=== PATIENT | male | born 1945 | race Caucasian/White ===

== ENCOUNTER 2016-06-29 10:37 | Emergency (ER) | payer MEDICARE ==
[2016-06-29 12:34] VITALS: BP 151/92
--- NOTE | 2016-06-29 12:38 | RAD ---
INDICATION: Progressive back pain COMPARISON: None TECHNIQUE: Routine PA, lateral, and oblique imaging was performed . FINDINGS: Bones: There are no acute bony findings. There are osteoarthritic findings with the space narrowing with endplate sclerosis and facet arthropathy at the lower 2 lumbar levels. There are multilevel endplate irregularities several without mild biconcave appearance. Alignment: Mild scoliosis Disc spaces: The remaining disc spaces are well-maintained Soft tissues: There are no soft tissue abnormalities. IMPRESSION: MILD SCOLIOSIS WITH MODERATE OSTEOARTHRITIS OF THE LOWER LUMBAR SPINE
--- NOTE | 2016-06-29 15:59 | UC ---
Silvino Hardy Alok, scribed for Beth Cat MD on 06/29/16 at 1143 . Back Pain HPI - HPI Summary HPI Summary: 70 y/o male presents to the with lower back pain since 6 day ago. Pain starts at lower back left side and radiates down left leg to ankle with tingling sensations. Pt states that pain is relatively constant, but worst in the morning to the point of difficulty ambulating. Pt states that pain is improved by reclining position as well as ice and stretching. Pt has tried Alleve and Tylenol with no relief. Pt states he has tried chiropractics 5 and 4 days ago, did not help. Pt has also tried acupuncture in back, legs, and hands one day ago with no improvement. Pt denies numbness, urinary symptoms, bowel incontinence, groin pain, hx ulcers. Denies EtOH or hx of addiction. PMHx includes IBS. Able to take naproxen (1/2 dose) which bothers his stomach, but is tolerable. Pt states he has never had back pain of this severity before, and only notes minor sciatic problems in the past. PCP Dr. Parkinson. - History of Current Complaint Chief Complaint: UCBackPain Stated Complaint: BACK PAIN Time Seen by Provider: 06/29/16 11:05 Hx Obtained From: Patient Onset/Duration: Gradual Onset, Lasting Days, Still Present Timing: Constant, Lasting Days Severity Initially: Moderate Severity Currently: Moderate Pain Intensity: 9 Pain Scale Used: 0-10 Numeric Back Pain: Is Discrete @ - Lower back, Radiates To - left leg to left ankle Alleviating: Position, Cold Associated Signs And Symptoms: Positive: Tingling. Negative: Numbness, Bladder Incontinence, Bowel Incontinence - Allergies/Home Medications Allergies/Adverse Reactions: Allergies Allergy/AdvReac Type Severity Reaction Status Date / Time No Known Allergies Allergy Verified 01/28/16 10:07 PMH/Surg Hx/FS Hx/Imm Hx Previously Healthy: Yes - see hpi Endocrine History Of: Denies: Diabetes, Thyroid Disease Cardiovascular History Of: Reports: Hypertension - MEDICATED Denies: Cardiac Disorders, Pacemaker/ICD Respiratory History Of: Denies: COPD, Asthma GI/ History Of: Reports: Ulcer - reflux, Gall Bladder Disease - removed age 45 - Surgical History Surgical History: Yes Surgery Procedure, Year, and Place: 1961 tonsils. 1984 RT ORIF elbow (side not listed). 1996 cholecystectomy. 2001 TURP - Family History Known Family History: Negative: Cardiac Disease, Diabetes - Social History Occupation: Employed Full-time Lives: With Family - Alcohol Use: None Substance Use Type: None Smoking Status (MU): Never Smoked Tobacco Review of Systems Constitutional: Negative Skin: Negative Eyes: Negative ENT: Negative Respiratory: Negative Cardiovascular: Negative Gastrointestinal: Negative Genitourinary: Negative Motor: Negative Neurovascular: Negative Musculoskeletal: Other: - Lower left-sided back pain Neurological: Negative Psychological: Negative All Other Systems Reviewed And Are Negative: Yes Physical Exam Triage Information Reviewed: Yes Appearance: Well-Nourished - pain when sitting / standing in place too long Vital Signs: Initial Vital Signs Temp 99.1 F 06/29/16 10:53 Pulse 76 06/29/16 10:53 Resp 18 06/29/16 10:53 BP 158/79 06/29/16 10:53 Pulse Ox 95 06/29/16 10:53 Vital Signs Reviewed: Yes Eye Exam: Normal ENT Exam: Normal Neck exam: Normal Respiratory Exam: Normal - no dyspnea, no tachypnea, normal respiratory rate Respiratory: Positive: Chest non-tender, Lungs clear, Normal breath sounds, No respiratory distress, No accessory muscle use Cardiovascular Exam: Normal - Heart rate regular, good general skin color, good capillary refill Cardiovascular: Positive: RRR, No Murmur, Pulses Normal, Brisk Capillary Refill Abdominal Exam: Normal Abdomen Description: Positive: Nontender, No Organomegaly, Soft Bowel Sounds: Positive: Present Musculoskeletal: Positive: Other: - Left low back tenderness over sciatic distribution. DTR's 2+ equal pat / ach Foot warm to touch. CR < 2 sec. DP / pt 1+ equal bilat. No rash noted or reported. Denies b/b issues. + subj sens intact perineum. Gait slow, steady. Neurological Exam: Normal - See above. o/w nonfocal Psychological Exam: Normal - conversing easily and appropriately Skin Exam: Normal - no visible or reported rash Diagnostics - Radiology Lumbar Spine XRAY Xray Interpretation: Positive (See Comments) - IMPRESSION: Negative for traumatic cervical spine injury. Negative exam. Radiology Interpretation Completed By: Radiologist Back Pain Course/Dx - Course Course Of Treatment: Declines analgesics, has anti-inflamatories at home. Checked ISTOP reference # [id number]. See avs. Reviewed Xray report w/ Mr. Clark, and recommendation for f/u with pcp. Questions answered as posed to the best of my ability. - Differential Dx/Diagnosis Provider Diagnoses: Sciatica L. Acute left low back pain, possible strain, in the setting of. DJD. Scoliosis Discharge - Discharge Plan Condition: Stable Disposition: HOME Prescriptions: Cyclobenzaprine TAB* [Flexeril 10 MG TAB*] 10 mg PO TID PRN #30 tab PRN Reason: Pain HYDROcodone/ACETAMIN 5-325 MG* [[place] 5-325 TAB*] 1 tab PO Q6H PRN #20 tab MDD 8 PRN Reason: Pain Patient Education Materials: Sciatica (ED), Low Back Strain (ED), Arthritis (ED ) Referrals: Daniel Garnica MD [Primary Care Provider] - Additional Instructions: Follow up with Dr. Garnica, in the next week, if possible. Seek medical attention for worse or new problems in the meantime. Over the counter naproxen as per packaging instructions as needed for inflammation. The documentation as recorded by the Silvino lechuga Alok accurately reflects the service I personally performed and the decisions made by me, Beth Cat MD.
== END 2016-06-29 13:03 | disposition home or self-care (01) ==
LOC: UCEAST 10:37
DX: M54.42 Lumbago with sciatica, left side (principal); M47.816 Spondylosis without myelopathy or radiculopathy, lumbar region; M41.9 Scoliosis, unspecified; I10 Essential (primary) hypertension; Z90.49 Acquired absence of other specified parts of digestive tract
CPT/HCPCS: 72110; 99212; G0463

== ENCOUNTER 2016-07-03 09:34 | Emergency (ER) | payer MEDICARE ==
[2016-07-03] MEDS ORDERED: predniSONE TAB* 20 MG PO ONE (10:01)
[2016-07-03] MEDS ORDERED: Ketorolac INJ* 60 MG/2 ML VIAL IM ONE (10:03)
--- NOTE | 2016-07-03 10:23 | RAD ---
INDICATION: Leg pain COMPARISON: Lumbar spine June 29, 2016 TECHNIQUE: Noncontrast axial source images was performed from the thoracolumbar junction to the sacrum. Coronal and and sagittal reformatted images were generated. FINDINGS: Vertebrae: There is no fracture or acute focal bony lesion. There are mild degenerative changes with spurring at L4 and L5 and minor facet arthropathy lower 2 lumbar levels. Alignment: The lumbar vertebrae are normally aligned. Central Canal: There is wide canal and foraminal patency at T12-L1 and L1-L2. At L2-L3 there is circumferential bulging of the disc but the canal remains patent. The nerve roots exit without direct impingement. L3-L4 shows circumferential bulging the disc with moderate facet overgrowth with mild central canal stenosis. The nerve roots exit without direct impingement. L4-L5 demonstrates broad-based circumferential bulging the disc with prominent ligamentous and facet overgrowth lead to mild central canal stenosis and moderate bilateral foraminal narrowing. L5-S1 shows advanced degenerative disease with vacuum disc phenomena. The canal is widely patent. Bony spur formation may impinge upon the L5 nerve root laterally. MRI imaging is more sensitive means to evaluate the intracanalicular structures and exiting nerve roots. Intervertebral disc spaces: The remaining disc spaces are maintained. Soft tissues: The paravertebral soft tissues are normal. Other: None IMPRESSION: There is multilevel degenerative disc disease. Most significant findings are L3-L5 with mild canal stenoses at L3-L4 and L4-L5. There is osteoarthritis with foraminal narrowing at L5-S1 on the left.
--- NOTE | 2016-07-03 10:25 | RAD ---
INDICATION: Degenerative disc disease. Leg pain. Request for CT of the pelvis COMPARISON: CT lumbar spine same date TECHNIQUE: Noncontrast axial source images were obtained from the iliac crests through the symphysis pubis. FINDINGS: There are no CT abnormalities of the bony pelvis. There is mild prostatic enlargement. No free fluid or adenopathy is seen. The noncontrast CT appearance of the bowel is unremarkable. The superficial soft tissues appear normal. The bladder appears normal. IMPRESSION: NO ACUTE CT ABNORMALITIES OF THE BONY PELVIS
--- NOTE | 2016-07-03 10:55 | ED ---
Back Pain - HPI Summary HPI Summary: Patient presents with low back pain with left posterior leg involvement for 5 days without known injury. He was evaluated at [facility] where he was given [place] and flexeril, which were minimally helpful. He called his today who referred him to the ED for evaluation. He denies incontinence of urine or stool, no N/T, but he does have pain down the outside of the left calf to the small toe. He has had a flair up like this before but it normally resolves on it's own. 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 Onset/Duration: Gradual Onset Onset/Duration: Started Days Ago Timing: Constant Back Pain Location: Is Discrete @, Radiates To - left leg Severity Initially: Mild Severity Currently: Severe Pain Intensity: 10 Character: Aching Aggravating Symptom(s): Bending Alleviating Symptom(s): Position - standing Associated Signs And Symptoms: Positive: Tingling - Allergies/Home Medications Allergies/Adverse Reactions: Allergies Allergy/AdvReac Type Severity Reaction Status Date / Time No Known Allergies Allergy Verified 01/28/16 10:07 PMH/Surg Hx/FS Hx/Imm Hx Endocrine/Hematology History: Denies: Hx Diabetes, Hx Thyroid Disease Cardiovascular History: Reports: Hx Hypertension - MEDICATED Denies: Hx Pacemaker/ICD Respiratory History: Reports: Other Respiratory Problems/Disorders - ex-smoker, quit 1990 Denies: Hx Asthma, Hx Chronic Obstructive Pulmonary Disease (COPD) GI History: Reports: Hx Gall Bladder Disease - removed age 45, Hx Gastroesophageal Reflux Disease, Hx Irritable Bowel, Hx Ulcer - reflux History: Reports: Other Problems/Disorders - TURP age 50 Musculoskeletal History: Reports: Hx Back Problems, Hx Osteoporosis, Other Musculoskeletal History - neck problems Sensory History: Denies: Hx Hearing Aid Neurological History: Reports: Hx Headaches, Other Neuro Impairments/Disorders - 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 1984 RT ORIF elbow (side not listed). 1996 cholecystectomy. 2001 TURP Infectious Disease History: Denies: Hx Hepatitis, Hx Human Immunodeficiency Virus (HIV), Traveled Outside the [place] in Last 30 Days - Family History Known Family History: Positive: None Negative: Cardiac Disease, Diabetes - Social History Occupation: Retired Lives: With Family Alcohol Use: None Substance Use Type: Reports: None Smoking Status (MU): Never Smoked Tobacco Review of Systems Positive: Myalgia Negative: Bruising Negative: Weakness, Paresthesia, Numbness All Other Systems Reviewed And Are Negative: Yes Physical Exam Triage Information Reviewed: Yes Vital Signs On Initial Exam: Initial Vitals Temp Pulse Resp BP Pulse Ox 97.6 F 93 16 145/95 100 07/03/16 09:40 07/03/16 09:40 07/03/16 09:40 07/03/16 09:40 07/03/16 09:40 Vital Signs Reviewed: Yes Appearance: Positive: Well-Appearing, Well-Nourished, Pain Distress Skin: Positive: Warm, Skin Color Reflects Adequate Perfusion, Dry, Soft Head/Face: Positive: Normal Head/Face Inspection Eyes: Positive: EOMI, ALL, Conjunctiva Clear ENT: Positive: Hearing grossly normal Neck: Positive: Supple, Nontender Respiratory/Lung Sounds: Positive: Breath Sounds Present Cardiovascular: Positive: RRR Musculoskeletal: Positive: Strength/ROM Intact, Pain @ - left hip FF painful; TTP left SI joint and buttock over posterior thigh. Negative: Edema Left Neurological: Positive: Sensory/Motor Intact, Alert, Oriented to Person Place, Time, NV Bundle Intact Distally, Abnormal Gait - mildly antalgic gait Psychiatric: Positive: Affect/Mood Appropriate AVPU Assessment: Alert Diagnostics - Vital Signs Vital Signs Temp Pulse Resp BP Pulse Ox 07/03/16 09:40 97.6 F 93 16 145/95 100 - Laboratory Lab Statement: Any lab studies that have been ordered have been reviewed, and results considered in the medical decision making process. - CT No standard instances CT Interpretation: No Acute Changes CT Interpretation Completed By: Radiologist Back Pain Course/Dx - Course Course Of Treatment: Patient will be placed on a steroid taper and consistent course of NSAIDs. He will f/u with his PCP in 3-5 days for re-evaluation. - Diagnoses Differential Diagnosis/HQI/PQRI: Positive: Arthritis, Cauda Equina Syndrome, Fracture, Herniated Disc, Neoplasm, Strain, Sprain Provider Diagnoses: Sciatica Discharge - Discharge Plan Condition: Stable Disposition: HOME Prescriptions: predniSONE TAB* [Deltasone TAB*] 40 mg PO DAILY #9 tab Patient Education Materials: Sciatica (ED) Referrals: Daniel Garnica MD [Primary Care Provider] - Additional Instructions: Please take the steroids as directed until they are completely gone. Begin taking 600mg of ibuprofen tomorrow at lunch, three times daily with meals for the next 3-5 days. Perform gentle stretches if they are not causing your pain to increase. Follow-up with your PCP in 3-5 days for re-evaluation and possible referral to physical therapy. Return to the emergency department if symptoms worsen.
[2016-07-03 12:59] VITALS: BP 141/88
== END 2016-07-03 14:27 | disposition home or self-care (01) ==
LOC: ED 09:34
DX: M54.30 Sciatica, unspecified side (principal); M54.5 Low back pain; M79.1 Myalgia
CPT/HCPCS: 72131; 72192; 96372; 99282; J1885; J7512

== ENCOUNTER 2016-12-03 10:14 | Emergency (ER) | payer MEDICARE ==
[2016-12-03 11:54] LABS: Hematocrit 51 % (42-52); Hemoglobin 17.2 g/dl (14.0-18.0); Mean Corpuscular HGB Conc 34 g/dl (31-36); Mean Corpuscular Hemoglobin 31 pg (27-31); Mean Corpuscular Volume 91 fL (80-94); Mean Platelet Volume 9 um3 (7.4-10.4); Red Blood Count 5.54 10^6/ul (4.0-5.4); Red Cell Distribution Width 14 % (10.5-15); White Blood Count 7.8 10^3/ul (3.5-10.8)
[2016-12-03 11:55] LABS: Urine Bilirubin Negative (Negative); Urine Glucose Negative (Negative); Urine Nitrite Negative (Negative)
[2016-12-03 12:05] LABS: Albumin 3.7 g/dL (3.2-5.2); BUN/Creatinine Ratio 12.2 (8-20); Calcium 9.7 mg/dL (8.6-10.3); EGFR African American 96.4 (>60); Globulin 3.7 g/dL (2-4); Potassium 3.1 mmol/L (3.5-5.0); Total Bilirubin 7.4 mg/dL (0.2-1.0); Total Protein 7.4 g/dL (6.4-8.9)
[2016-12-03 12:09] LABS: Troponin I 0.01 ng/mL (<0.04)
--- NOTE | 2016-12-03 12:15 | RAD ---
INDICATION: Weakness. COMPARISON: Comparison is made with a prior chest x-ray study from January 06, 2010. TECHNIQUE: Dual-energy PA and lateral views of the chest were obtained. FINDINGS: The heart is within normal limits in size. Mediastinal and hilar contours appear within normal limits. The lungs are underinflated. There is mild blunting of the right costophrenic angle most consistent with a small pleural effusion. The lungs appear clear. IMPRESSION: SMALL RIGHT PLEURAL EFFUSION.
--- NOTE | 2016-12-03 13:40 | RAD ---
INDICATION: ] Right upper quadrant pain. Fever. COMPARISON: None TECHNIQUE: Longitudinal and transverse scans of the right upper quadrant were obtained. Doppler interrogation of the hepatic and portal venous system was performed. FINDINGS: Liver: The liver is mildly heterogeneous and there is mild increased echogenicity. There are grouped cysts or there is a complex cyst in the left hepatic lobe. Collectively this area measures 2.0 x 2.0 x 4.0 cm. In the right hepatic lobe is a cyst measuring 2.2 x 1.4 x 1.9 cm. The liver measures 17.2 cm in cephalocaudal dimension. Vessels: There is normal hepatic and portal venous flow. Bile ducts: There is no evidence of intrahepatic or extrahepatic ductal dilatation. The common duct measures 26 cm. Gallbladder: Cholecystectomy. Pancreas: The visualized pancreas appears normal Right kidney: The right kidney is normal in size and echogenicity. There are no masses or calculi. There is no evidence of hydronephrosis. The right kidney measures 12.6 x 5.1 x 6.1 cm. IVC and aorta: The aorta and superior vena cava appear normal. Fluid: There is no ascites. Other: None. IMPRESSION: CHOLECYSTECTOMY. 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 HEPATIC CYSTS.
[2016-12-03 14:54] VITALS: BP 111/63
--- NOTE | 2016-12-04 11:09 | ED ---
Jurgen Hardy Alfonso, scribed for Dar Tracey MD on 12/03/16 at 1115 . Complex/Multi-Sys Presentation - HPI Summary HPI Summary: This patient is a 71 year old M presenting to [facility] accompanied by with a chief complaint of weakness since 3 days ago. The patient rates the pain 0/10 in severity. Symptoms aggravated by nothing. Symptoms alleviated by nothing. Patient reports diaphoresis, chills, and abdominal pain (3 nights ago and since resolved). Patient denies fever, dysuria, cough, and diarrhea. - History Of Current Complaint Chief Complaint: EDGeneral Time Seen by Provider: 12/03/16 10:58 Hx Obtained From: Patient Onset/Duration: Sudden Onset, Lasting Days - 3, Still Present Timing: Constant Severity Currently: Moderate Severity Initially: Moderate Aggravating Factor(s): nothing Alleviating Factor(s): nothing Associated Signs And Symptoms: Positive: Other - diaphoresis, chills, and abdominal pain (3 nights ago and since resolved). Patient denies fever, dysuria , cough, and diarrhea. - Allergies/Home Medications Allergies/Adverse Reactions: Allergies Allergy/AdvReac Type Severity Reaction Status Date / Time No Known Allergies Allergy Verified 01/28/16 10:07 Home Medications: Home Medications Hydrochlorothiazide TAB* [Hydrodiuril TAB*] 25 mg PO DAILY 12/03/16 [History Confirmed 12/03/16] Omeprazole CAP* [Prilosec CAP* 20 MG] 20 mg PO DAILY 12/03/16 [History Confirmed 12/03/16] Propranolol TAB* [Inderal TAB*] 10 mg PO TID 12/03/16 [History Confirmed ] predniSONE TAB* [Deltasone TAB*] 20 mg PO DAILY 12/03/16 [History Confirmed 11/11] PMH/Surg Hx/FS Hx/Imm Hx Endocrine/Hematology History: Denies: Hx Diabetes, Hx Thyroid Disease Cardiovascular History: Reports: Hx Hypertension - MEDICATED Denies: Hx Pacemaker/ICD Respiratory History: Reports: Other Respiratory Problems/Disorders - ex-smoker, quit 1990 Denies: Hx Asthma, Hx Chronic Obstructive Pulmonary Disease (COPD) GI History: Reports: Hx Gall Bladder Disease - removed age 45, Hx Gastroesophageal Reflux Disease, Hx Irritable Bowel, Hx Ulcer - reflux History: Reports: Other Problems/Disorders - TURP age 50 Denies: Hx Renal Disease Musculoskeletal History: Reports: Hx Back Problems, Hx Osteoporosis, Other Musculoskeletal History - neck problems Sensory History: Denies: Hx Hearing Aid Neurological History: Reports: Hx Headaches, Other Neuro Impairments/Disorders - 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 PROSTATE SCRAPED. PIN IN RIGHT ARM-THEN REMOVED. TONSIL CHILD Infectious Disease History: Denies: Hx Hepatitis, Hx Human Immunodeficiency Virus (HIV), Traveled Outside the [place] in Last 30 Days - Family History Known Family History: Negative: Cardiac Disease, Diabetes - Social History Alcohol Use: None Substance Use Type: Reports: None Smoking Status (MU): Never Smoked Tobacco Review of Systems Positive: Chills, Skin Diaphoresis. Negative: Fever Negative: Cough Positive: Abdominal Pain - 3 nights ago and since resolved. Negative: Diarrhea Negative: dysuria Positive: Weakness All Other Systems Reviewed And Are Negative: Yes Physical Exam Triage Information Reviewed: Yes Vital Signs On Initial Exam: Initial Vitals Temp Pulse Resp BP Pulse Ox 98.0 F 79 18 142/86 97 12/03/16 10:21 12/03/16 10:21 12/03/16 10:21 12/03/16 10:21 12/03/16 10:21 Vital Signs Reviewed: Yes Appearance: Positive: Well-Appearing, No Pain Distress Skin: Positive: Warm, Skin Color Reflects Adequate Perfusion, Dry Head/Face: Positive: Normal Head/Face Inspection Eyes: Positive: Normal ENT: Positive: Normal ENT inspection Neck: Positive: Supple, Nontender Respiratory/Lung Sounds: Positive: Clear to Auscultation, Breath Sounds Present Cardiovascular: Positive: RRR Abdomen Description: Positive: Soft, Other: - Mild RLQ and right flank tenderness. Bowel Sounds: Positive: Present Musculoskeletal: Positive: Normal Neurological: Positive: Normal, Sensory/Motor Intact, Alert, Oriented to Person Place, Time, CN Intact II-III Psychiatric: Positive: Affect/Mood Appropriate Diagnostics - Vital Signs Vital Signs Temp Pulse Resp BP Pulse Ox 12/03/16 10:21 98.0 F 79 18 142/86 97 - Laboratory Lab Results: Lab Results 12/03/16 12/03/16 12/03/16 Range/Units 11:10 11:10 11:10 WBC 7.8 (3.5-10.8) 10^3/ul RBC 5.54 H (4.0-5.4) 10^6/ul Hgb 17.2 (14.0-18.0) g/dl Hct 51 (42-52) % MCV 91 (80-94) fL MCH 31 (27-31) pg MCHC 34 (31-36) g/dl RDW 14 (10.5-15) % Plt Count 130 L (150-450) 10^3/ul MPV 9 (7.4-10.4) um3 Neut % (Auto) 79.4 (38-83) % Lymph % (Auto) 8.7 L (25-47) % [place] % (Auto) 11.3 H (1-9) % Eos % (Auto) 0.4 (0-6) % Baso % (Auto) 0.2 (0-2) % Absolute Neuts (auto) 6.2 (1.5-7.7) 10^3/ul Absolute Lymphs (auto) 0.7 L (1.0-4.8) 10^3/ul Absolute Monos (auto) 0.9 H (0-0.8) 10^3/ul Absolute Eos (auto) 0 (0-0.6) 10^3/ul Absolute Basos (auto) 0 (0-0.2) 10^3/ul Absolute Nucleated RBC 0.03 10^3/ul Nucleated RBC % 0.3 INR (Anticoag Therapy) 1.10 (0.89-1.11) Sodium 135 (133-145) mmol/L Potassium 3.1 L (3.5-5.0) mmol/L Chloride 100 L (101-111) mmol/L Carbon Dioxide 25 (22-32) mmol/L Anion Gap 10 (2-11) mmol/L BUN 12 (6-24) mg/dL Creatinine 0.98 (0.67-1.17) mg/dL Est GFR ( Amer) 96.4 (>60) Est GFR (Non-Af Amer) 75.0 (>60) BUN/Creatinine Ratio 12.2 (8-20) Glucose 155 H (70-100) mg/dL Lactic Acid (0.5-2.0) mmol/L Calcium 9.7 (8.6-10.3) mg/dL Total Bilirubin 7.40 H (0.2-1.0) mg/dL AST 30 (13-39) U/L ALT 102 H (7-52) U/L Alkaline Phosphatase 46 (34-104) U/L Troponin I 0.01 (<0.04) ng/mL Total Protein 7.4 (6.4-8.9) g/dL Albumin 3.7 (3.2-5.2) g/dL Globulin 3.7 (2-4) g/dL Albumin/Globulin Ratio 1.0 (1-3) Urine Color Urine Appearance Urine pH (5-9) Ur Specific Wall[place] (1.010-1.030) Urine Protein (Negative) Urine Ketones (Negative) Urine Blood (Negative) Urine Nitrate (Negative) Urine Bilirubin (Negative) Urine Urobilinogen (Negative) Ur Leukocyte Esterase (Negative) Urine Glucose (Negative) 12/03/16 12/03/16 Range/Units 11:10 11:10 WBC (3.5-10.8) 10^3/ul RBC (4.0-5.4) 10^6/ul Hgb (14.0-18.0) g/dl Hct (42-52) % MCV (80-94) fL MCH (27-31) pg MCHC (31-36) g/dl RDW (10.5-15) % Plt Count (150-450) 10^3/ul MPV (7.4-10.4) um3 Neut % (Auto) (38-83) % Lymph % (Auto) (25-47) % [place] % (Auto) (1-9) % Eos % (Auto) (0-6) % Baso % (Auto) (0-2) % Absolute Neuts (auto) (1.5-7.7) 10^3/ul Absolute Lymphs (auto) (1.0-4.8) 10^3/ul Absolute Monos (auto) (0-0.8) 10^3/ul Absolute Eos (auto) (0-0.6) 10^3/ul Absolute Basos (auto) (0-0.2) 10^3/ul Absolute Nucleated RBC 10^3/ul Nucleated RBC % INR (Anticoag Therapy) (0.89-1.11) Sodium (133-145) mmol/L Potassium (3.5-5.0) mmol/L Chloride (101-111) mmol/L Carbon Dioxide (22-32) mmol/L Anion Gap (2-11) mmol/L BUN (6-24) mg/dL Creatinine (0.67-1.17) mg/dL Est GFR ( Amer) (>60) Est GFR (Non-Af Amer) (>60) BUN/Creatinine Ratio (8-20) Glucose (70-100) mg/dL Lactic Acid 2.0 (0.5-2.0) mmol/L Calcium (8.6-10.3) mg/dL Total Bilirubin (0.2-1.0) mg/dL AST (13-39) U/L ALT (7-52) U/L Alkaline Phosphatase (34-104) U/L Troponin I (<0.04) ng/mL Total Protein (6.4-8.9) g/dL Albumin (3.2-5.2) g/dL Globulin (2-4) g/dL Albumin/Globulin Ratio (1-3) Urine Color Nimisha Urine Appearance Clear Urine pH 6.0 (5-9) Ur Specific [place] 1.006 L (1.010-1.030) Urine Protein Negative (Negative) Urine Ketones Negative (Negative) Urine Blood Negative (Negative) Urine Nitrate Negative (Negative) Urine Bilirubin Negative (Negative) Urine Urobilinogen Negative (Negative) Ur Leukocyte Esterase Negative (Negative) Urine Glucose Negative (Negative) Result Diagrams: 12/03/16 11:10 12/03/16 11:10 Lab Statement: Any lab studies that have been ordered have been reviewed, and results considered in the medical decision making process. - Radiology CXR Radiology Interpretation Completed By: Radiologist - SMALL RIGHT PLEURAL EFFUSION. ED physician has reviewed this radiology report and agrees. - EKG 1143 Cardiac Rate: NL - BPM 71 EKG Rhythm: Sinus Rhythm EKG Interpretation: Wandering baseline - Additional Comments Diagnostic Additional Comments: Liver US reveals, per radiologist, CHOLECYSTECTOMY. 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 HEPATIC CYSTS. ED physician has reviewed this radiology report and agrees. Complex Multi-Symp Course/Dx Assessment/Plan: This patient is a 71 year old M presenting to [facility] accompanied by with a chief complaint of weakness since 3 days ago. The patient rates the pain 0/10 in severity. Symptoms aggravated by nothing. Symptoms alleviated by nothing. Patient reports diaphoresis, chills, and abdominal pain (3 nights ago and since resolved). Patient denies fever, dysuria , cough, and diarrhea. An EKG reveals NSR. CXR reveals SMALL RIGHT PLEURAL EFFUSION. ED physician has reviewed this radiology report and agrees. Liver US reveals, per radiologist, CHOLECYSTECTOMY. 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 HEPATIC CYSTS. ED physician has reviewed this radiology report and agrees. Patient will be discharged with follow up from PCP. The patient is agreeable with this plan. - Diagnoses Provider Diagnoses: Weakness Discharge - Discharge Plan Condition: Stable Disposition: HOME Patient Education Materials: Weakness (ED) Referrals: Daniel Garnica MD [Primary Care Provider] - 3 Days The documentation as recorded by the Jurgen lechuga Alfonso accurately reflects the service I personally performed and the decisions made by me, Dar Tracey MD.
== END 2016-12-03 15:15 | disposition home or self-care (01) ==
LOC: ED 10:14
DX: R53.1 Weakness (principal); R10.9 Unspecified abdominal pain; R68.83 Chills (without fever)
CPT/HCPCS: 36415; 71020; 76705; 80053; 81003; 83605; 84484; 85025; 85610; 87040; 93005; 99284

== ENCOUNTER 2018-02-01 10:16 | Day surgery (SDC) | payer MEDICARE ==
[~2018-02-01 10:16] MED LIST: Acetaminophen TAB* 325 MG PO PRN; Buffered Lidocaine 0.9% SYRIN* 5 ML/SYR SYRINGE INTRADERM ONE
[2018-02-01] MEDS ORDERED: Midazolam* 1 MG/ML 2 ML VIAL (2 MG) ONE (12:12)
[2018-02-01] MEDS ORDERED: fentaNYL* 50 MCG/ML 2 ML VIAL (100 MCG VIAL) ONE (12:45)
[2018-02-01 13:12] VITALS: BP 143/83
[2018-02-01] MEDS ORDERED: Ketorolac 0.5% OPHTH (NF) 0.5 % 5 ML BTL ONE (14:32)
[2018-02-01] MEDS ORDERED: Povidone Iodine 5% OPTH* 30 ML BTL ONE (14:32)
[2018-02-01] MEDS ORDERED: Lidocaine 1%* 5 ML VIAL ONE (14:32)
[2018-02-01] MEDS ORDERED: Phenylephrine 2.5% OPTH.SOL* 2 ML BTL ONE (14:32)
[2018-02-01] MEDS ORDERED: Proparacaine 0.5% OPHTH.SOL* 15 ML BTL ONE (14:32)
[2018-02-01] MEDS ORDERED: Lidocaine 2% EPI 1:200000 MPF*10-20 ML VIAL ONE (14:32)
[2018-02-01] MEDS ORDERED: Neomycin/Polymy/Dex OPTH.SUSP* MAXITROL 0.1% 5 ML ONE (14:32)
[2018-02-01] MEDS ORDERED: Cyclopentolate 1% OPTH.SOL* 2 ML BTL ONE (14:32)
[2018-02-01] MEDS ORDERED: acetaZOLAMIDE TAB* 250 MG ONE (14:32)
--- NOTE | 2018-02-02 03:13 | OP ---
DATE OF OPERATION: 02/01/18 [facility] DATE OF : 41 SURGEON: Tolu Aragon M.D. PREOPERATIVE DIAGNOSIS: Cataract, right eye. POSTOPERATIVE DIAGNOSIS: Cataract, right eye. OPERATIVE PROCEDURE: Extracapsular cataract extraction with intraocular lens implant, right eye. DESCRIPTION OF PROCEDURE: The patient was brought to the operating room after being given 1/2% Alcaine with epinephrine drops in the preoperative area. The eye was prepped and draped in the usual sterile fashion. Sterile drape and eyelid speculum were placed. Again, topical 1/2% Alcaine with epinephrine was given. A paracentesis incision was made at the 9 o'clock position with the No.75 blade. Clear cornea incision 2.2 x 2.2-mm was created at the 12 o'clock position starting at the anterior limbus using the 2.2-mm keratome. The anterior chamber was irrigated with 0.4 mL of 1% non-preservative intracameral lidocaine and filled with DisCoVisc. A capsulorrhexis was completed using the cystotome and the Utrata forceps. Hydrodissection was performed with balanced salt solution. The lens nucleus was removed with the Phacoemulsification handpiece without incident. Cortex was removed with the irrigation-aspiration handpiece. The capsular bag was re-inflated using DisCoVisc and an [id number] 22.5 implant was inserted with the shooter oriented to the 44 degree meridian. Horizontal reference marked with the patient in the seated position in the preoperative area. The irrigation-aspiration handpiece was used to remove all residual DisCoVisc. The eye was refilled with balanced salt solution and the wound checked and found to be watertight. Topical Maxitrol drops were given. [id number]/[facility] #: [id number] MTDD
== END 2018-02-01 13:16 | disposition home or self-care (01) ==
LOC: OREAST 10:16
PROVIDERS: ATTEND Specialist
DX: H25.811 Combined forms of age-related cataract, right eye (principal); I10 Essential (primary) hypertension; K21.9 Gastro-esophageal reflux disease without esophagitis; N40.0 Benign prostatic hyperplasia without lower urinary tract symptoms; G47.33 Obstructive sleep apnea (adult) (pediatric); G25.0 Essential tremor
CPT/HCPCS: A9270-GY; J2250; J3010; V2787

== ENCOUNTER → 2018-02-08 07:33 | Day surgery (SDC) | payer MEDICARE ==
[~2018-02-08 07:33] MED LIST changes: +Cyclopentolate 1% OPTH.SOL* 2 ML BTL ONE; +Ketorolac 0.5% OPHTH (NF) 0.5 % 5 ML BTL ONE; +Lidocaine 1%* 5 ML VIAL ONE; +Lidocaine 2% EPI 1:200000 MPF*10-20 ML VIAL ONE; +Midazolam* 1 MG/ML 2 ML VIAL (2 MG) ONE; +Neomycin/Polymy/Dex OPTH.SUSP* MAXITROL 0.1% 5 ML ONE; +Phenylephrine 2.5% OPTH.SOL* 2 ML BTL ONE; +Povidone Iodine 5% OPTH* 30 ML BTL ONE; +Proparacaine 0.5% OPHTH.SOL* 15 ML BTL ONE; +acetaZOLAMIDE TAB* 250 MG ONE
[2018-02-08 10:06] VITALS: BP 139/60
--- NOTE | 2018-02-08 13:06 | OP ---
DATE OF OPERATION: 02/08/2018. DATE OF : 1945. SURGEON: Tolu Aragon M.D. PREOPERATIVE DIAGNOSIS: Cataract left eye. POSTOPERATIVE DIAGNOSIS: Cataract left eye. OPERATIVE PROCEDURE: Extracapsular cataract extraction with intraocular lens implant left eye. PROCEDURE: The patient was brought to the operating room after being given 1/2% Alcaine with epineph rine drops in the preoperative area. The eye was prepped and draped in the usual sterile fashion. S terile drape and eyelid speculum were placed. Again, topical 1/2% Alcaine with epinephrine was given . A paracentesis incision was made at the 3 o'clock position with the No.75 blade. Clear cornea inc ision 2.2 x 2.2-mm was created at the 6 o'clock position starting at the anterior limbus using the 2. 2-mm keratome. The anterior chamber was irrigated with 0.4 mL of 1% non-preservative intracameral li docaine and filled with DisCoVisc. A capsulorrhexis was completed using the cystotome and the Utrata forceps. Hydrodissection was performed with balanced salt solution. The lens nucleus was removed wi th the Phacoemulsification handpiece without incident. Cortex was removed with the irrigation-aspira tion handpiece. The capsular bag was re-inflated using DisCoVisc and an [id number] 21.5 implant was inse rted with the shooter. The irrigation-aspiration handpiece was used to remove all residual DisCoVisc . The eye was refilled with balanced salt solution and the wound checked and found to be watertight. Topical Maxitrol drops were given. [id number]/[facility] #: [id number]
== END | disposition home or self-care (01) ==
LOC: OREAST 07:33
PROVIDERS: ATTEND Specialist
DX: H25.812 Combined forms of age-related cataract, left eye (principal); I10 Essential (primary) hypertension; K21.9 Gastro-esophageal reflux disease without esophagitis; G47.33 Obstructive sleep apnea (adult) (pediatric); R25.1 Tremor, unspecified; M19.90 Unspecified osteoarthritis, unspecified site
CPT/HCPCS: A9270-GY; J2250; V2632

== ENCOUNTER 2022-04-06 04:14 | Inpatient (IN) ==
[2022-04-06] MEDS ORDERED: Lactated Ringers 1000 ml BAG 1,000 ML IV ONE ×2 (04:23→09:25)
[2022-04-06 05:10] LABS: Hematocrit 45 % (42-52); Hemoglobin 15.4 g/dL (14.0-18.0); Mean Corpuscular HGB Conc 34 g/dL (31-36); Mean Corpuscular Hemoglobin 31 pg (27-31); Mean Corpuscular Volume 93 fL (80-94); Red Blood Count 4.91 10^6 /uL (4.18-5.48); Red Cell Distribution Width 14 % (10-15); White Blood Count 4.8 10^3/uL (3.5-10.8)
[2022-04-06 05:15] LABS: Albumin 3.6 g/dL (3.2-5.2); Albumin/Globulin Ratio 1.6 (1-3); C Reactive Protein 133.71 mg/L (<8.01); Calcium 8.4 mg/dL (8.6-10.3); Creatinine, Serum 1.56 mg/dL (0.67-1.17); Globulin 2.2 g/dL (2-4); Potassium 3.7 mmol/L (3.5-5.0); Total Bilirubin 3.4 mg/dL (0.2-1.0); Total Protein 5.8 g/dL (6.4-8.9); eGFR CKD-EPI 45.2 (>60)
[2022-04-06] MEDS ORDERED: Cefepime 1 GM in Dextrose 1 GM/50 ML BAG IV ONE (05:34)
[2022-04-06 05:37] LABS: ABS Lymphocytes 0.2 10^3/ul (1.0-4.8); ABS Neutrophils 4.5 10^3/ul (1.5-7.7); Eosinophil % 0.1 %; Mean Platelet Volume 7.8 fL (7.4-10.4); Nucleated Red Blood Cells % 0.1; Platelet Count 92 10^3/uL (150-450)
[2022-04-06] MEDS ORDERED: Iodixanol (CONTRAST) 320 MG/ML 100 ML SDV IV ONE (07:08)
[2022-04-06 09:19] LABS: Urine Appearance Clear; Urine Bacteria Absent (Absent); Urine Bilirubin Negative (Negative); Urine Blood Negative (Negative); Urine Color Amber; Urine Glucose Negative (Negative); Urine Ketones Negative (Negative); Urine Nitrite Negative (Negative); Urine Protein 1+(30 mg/dL) (Negative); Urine Red Blood Cell Absent (Absent); Urine Specific Gravity > 1.030 (1.002-1.030); Urine Squamous Epithelial Cell Present (Absent); Urine Urobilinogen Negative (Negative); Urine White Blood Cell Trace(0-5/hpf) (Absent)
[2022-04-06] MEDS ORDERED: Lactated Ringers 1000 ml BAG 1,000 ML IV SCH (12:00)
[2022-04-06 12:24] LABS: Direct Bilirubin 0.7 mg/dL (0.03-0.18); Indirect Bilirubin 2.7 mg/dL (0.3-1.0)
[2022-04-06] MEDS ORDERED: DOXYcycline 100 MG in NS 0.9% 250 ml 250 ML IVPB SCH (13:00)
[2022-04-06] MEDS: Enoxaparin 40 MG/0.4 ML SYR SUBCUT SCH (13:10)
[2022-04-06] MEDS: cefTRIAXone 1 gm/50 mL D5W 1 GM/50 ML BAG IV SCH (15:11)
[2022-04-06 18:21] LABS: Calcium 8.9 mg/dL (8.6-10.3); Creatinine, Serum 1.34 mg/dL (0.67-1.17); Potassium 4.3 mmol/L (3.5-5.0); eGFR CKD-EPI 54.2 (>60)
[2022-04-06] MEDS: metroNIDAZOLE IV 500 MG/100ML 500 MG/100 ML BAG IVPB SCH (18:33)
[2022-04-07] MEDS: metroNIDAZOLE IV 500 MG/100ML 500 MG/100 ML BAG IVPB SCH (05:11)
[2022-04-07 06:32] LABS: ABS Lymphocytes 0.7 10^3/ul (1.0-4.8); ABS Monocytes 0.5 10^3/ul (0-0.8); ABS Neutrophils 7.7 10^3/ul (1.5-7.7); Eosinophil % 0.1 %; Hematocrit 39 % (42-52); Hemoglobin 13.8 g/dL (14.0-18.0); Lymphocyte % 8.3 %; Mean Corpuscular HGB Conc 35 g/dL (31-36); Mean Corpuscular Hemoglobin 32 pg (27-31); Mean Corpuscular Volume 91 fL (80-94); Platelet Count 73 10^3/uL (150-450); Red Blood Count 4.29 10^6 /uL (4.18-5.48); Red Cell Distribution Width 14 % (10-15)
[2022-04-07 07:01] LABS: Albumin/Globulin Ratio 1.5 (1-3); Calcium 8.2 mg/dL (8.6-10.3); Creatinine, Serum 1.02 mg/dL (0.67-1.17); Potassium 3.4 mmol/L (3.5-5.0); Total Bilirubin 1.4 mg/dL (0.2-1.0); eGFR CKD-EPI 75.2 (>60)
[2022-04-07] MEDS: cefTRIAXone 1 gm/50 mL D5W 1 GM/50 ML BAG IV SCH (14:07)
[2022-04-07] MEDS: Enoxaparin 40 MG/0.4 ML SYR SUBCUT SCH (14:07)
[2022-04-08 06:00] LABS: ABS Basophils 0.1 10^3/ul (0-0.2); ABS Eosinophils 0.1 10^3/ul (0-0.6); ABS Lymphocytes 0.9 10^3/ul (1.0-4.8); ABS Monocytes 0.8 10^3/ul (0-0.8); ABS Neutrophils 7.1 10^3/ul (1.5-7.7); Eosinophil % 1.2 %; Hematocrit 42 % (42-52); Hemoglobin 14.5 g/dL (14.0-18.0); Lymphocyte % 10.4 %; Mean Corpuscular HGB Conc 34 g/dL (31-36); Mean Corpuscular Hemoglobin 32 pg (27-31); Mean Corpuscular Volume 93 fL (80-94); Mean Platelet Volume 8.2 fL (7.4-10.4); Platelet Count 87 10^3/uL (150-450); Red Blood Count 4.58 10^6 /uL (4.18-5.48); Red Cell Distribution Width 15 % (10-15); White Blood Count 8.9 10^3/uL (3.5-10.8)
[2022-04-08 06:19] LABS: Calcium 8.3 mg/dL (8.6-10.3); Potassium 3.7 mmol/L (3.5-5.0)
[2022-04-08 06:24] LABS: Creatinine, Serum 0.84 mg/dL (0.67-1.17); eGFR CKD-EPI 89.3 (>60)
[2022-04-08] MEDS ORDERED: Sulfamethox/Trimethoprim DS TAB 800/160 mg PO SCH (10:00)
[2022-04-08 11:55] VITALS: BP 150/80
[2022-04-08] MEDS: Enoxaparin 40 MG/0.4 ML SYR SUBCUT SCH (13:24)
[2022-04-08 17:32] LABS: Anaplasma phagocytophilum Negative (Negative); B. miyamotoi PCR, B Negative (Negative); Babesia divergens/MO-1 Negative (Negative); Babesia ducani Negative (Negative); Ehrlichia chaffeensis Negative (Negative); Ehrlichia ewingii/canis Negative (Negative); Ehrlichia muris eauclairensis Negative (Negative)
== END 2022-04-08 14:35 | disposition home or self-care (01) | DRG 872 ==
LOC: EDHOLD 04:14 → ED 04:14 → OBSVTOIN 11:04 → INTOOBSV 11:04 → SUATTDRO 11:04 → MED 16:36
PROVIDERS: ADMIT Hospitalist; ATTEND Hospitalist

== ENCOUNTER 2023-03-21 14:04 | Observation (INO) ==
[2023-03-21 14:56] LABS: ABS Eosinophils 0.1 10^3/uL (0.0-0.5); ABS Lymphocytes 0.6 10^3/uL (1.0-4.8); ABS Neutrophils 6.8 10^3/uL (1.5-7.6); ABS Nucleated RBC 0.02 10^3/ul; Eosinophil % 0.7 %; Hematocrit 44.1 % (38-53); Hemoglobin 15.2 g/dL (13.2-16.3); Lymphocyte % 7.6 %; Mean Corpuscular Hemoglobin 31.9 pg (27-33); Mean Corpuscular Hgb Conc 34.5 g/dL (31-36); Mean Corpuscular Volume 92.5 fL (80-97); Nucleated Red Blood Cells % 0.3 %/100WBC (0.0-0.8); Platelet Count 117 10^3/uL (150-450); Red Blood Count 4.76 10^6/uL (4.06-5.63); White Blood Count 8.5 10^3/uL (3.6-10.2)
[2023-03-21 15:02] LABS: INR 1.22 (0.83-1.13)
[2023-03-21 15:16] LABS: ALT 11 U/L (7-52); AST 13 U/L (13-39); Albumin 3.6 g/dL (3.2-5.2); Albumin/Globulin Ratio 1.6 (1-3); Alkaline Phosphatase 25 U/L (35-149); Anion Gap 6 mmol/L (2-16); Blood Urea Nitrogen 23 mg/dL (6-24); CO2 Carbon Dioxide 22 mmol/L (22-32); Calcium 7.9 mg/dL (8.6-10.3); Chloride 107 mmol/L (101-111); Creatinine, Serum 1.06 mg/dL (0.67-1.17); Globulin 2.2 g/dL (2-4); Glucose 123 mg/dL (70-100); Magnesium 1.8 mg/dL (1.9-2.7); Potassium 3.5 mmol/L (3.5-5.0); Sodium 135 mmol/L (135-145); Total Bilirubin 1.5 mg/dL (0.2-1.0); Total Protein 5.8 g/dL (6.4-8.9); eGFR CKD-EPI 71.4 (>60)
[2023-03-21 15:23] LABS: High Sens Troponin Baseline 5 pg/mL (<20)
[2023-03-21 15:37] LABS: Alcohol, S < 13 mg/dL (<13)
[2023-03-21 15:53] LABS: TSH Ultra Thyroid Stim Horm 0.89 mcIU/mL (0.34-5.60)
[2023-03-21] MEDS ORDERED: Senna TAB 8.6 mg TAB PO PRN (16:34)
[2023-03-21 16:39] LABS: High Sensitivity Troponin 1 Hr 5 pg/mL (<20)
[2023-03-21] MEDS ORDERED: Enoxaparin 40 MG/0.4 ML SYR SUBCUT SCH (17:00)
[2023-03-21 17:13] LABS: Urine Appearance Clear; Urine Bilirubin Negative (Negative); Urine Blood Negative (Negative); Urine Color Yellow; Urine Glucose Negative (Negative); Urine Ketones Negative (Negative); Urine Nitrite Negative (Negative); Urine Protein Negative (Negative); Urine Specific Gravity 1.014 (1.002-1.030); Urine Urobilinogen Negative (Negative)
[2023-03-21] MEDS ORDERED: Magnesium Sulfate 2 gm BAG 2 GM/50 ML BAG IVPB ONE (17:38)
[2023-03-21] MEDS ORDERED: Remdesivir 100 mg Vial 200 MG in NS 0.9% 250 ml 210 ML IV ONE (18:33)
[2023-03-21] MEDS ORDERED: Remdesivir 100 mg Vial 100 MG in NS 0.9% 250 ml 230 ML IV SCH (18:45)
[2023-03-22 06:41] LABS: ABS Eosinophils 0.1 10^3/uL (0.0-0.5); ABS Lymphocytes 0.8 10^3/uL (1.0-4.8); ABS Monocytes 0.9 10^3/uL (0.0-1.1); ABS Neutrophils 4.9 10^3/uL (1.5-7.6); ABS Nucleated RBC 0.01 10^3/ul; Eosinophil % 0.8 %; Hematocrit 46.6 % (38-53); Hemoglobin 16.2 g/dL (13.2-16.3); Lymphocyte % 12.4 %; Mean Corpuscular Hgb Conc 34.7 g/dL (31-36); Mean Corpuscular Volume 92.2 fL (80-97); Mean Platelet Volume 8.4 fL (7.5-11.2); Nucleated Red Blood Cells % 0.1 %/100WBC (0.0-0.8); Platelet Count 109 10^3/uL (150-450); Red Blood Count 5.06 10^6/uL (4.06-5.63); Red Cell Distribution Width 13.9 % (12-17); White Blood Count 6.7 10^3/uL (3.6-10.2)
[2023-03-22 06:57] LABS: INR 1.21 (0.83-1.13)
[2023-03-22 07:03] LABS: Albumin 3.8 g/dL (3.2-5.2); Albumin/Globulin Ratio 1.4 (1-3); C Reactive Protein 52.75 mg/L (<8.01); Calcium 8.7 mg/dL (8.6-10.3); Creatinine, Serum 1.06 mg/dL (0.67-1.17); Globulin 2.7 g/dL (2-4); Magnesium 2.1 mg/dL (1.9-2.7); Total Bilirubin 1.1 mg/dL (0.2-1.0); Total Protein 6.5 g/dL (6.4-8.9); eGFR CKD-EPI 71.4 (>60)
[2023-03-22] MEDS ORDERED: Vitamin THERAPEUTIC TAB PO SCH (09:00)
[2023-03-22 10:45] VITALS: BP 124/64
[2023-03-22] MEDS ORDERED: Lactated Ringers 1000 ml BAG 1,000 ML IV ONE ×2 (11:40→12:02)
[2023-03-22] MEDS ORDERED: Remdesivir 100 mg Vial 100 MG in NS 0.9% 250 ml 230 ML IV SCH (21:00)
== END 2023-03-22 14:40 | disposition home or self-care (01) ==
LOC: ED 14:04 → EDHOLD 14:04 → MEDTELE 16:34
PROVIDERS: ADMIT Student in an Organized Health Care Education/Training Program; ATTEND Student in an Organized Health Care Education/Training Program